=== PATIENT | female | born 1960 | race Caucasian/White ===

== ENCOUNTER 2021-03-19 09:18 | Outpatient (CLI) | payer OTHER ==
[~2021-03-19 09:18] MED LIST: Magnevist 469MG/ML 20 ML VIAL ONE
== END 2021-03-19 09:19 | disposition home or self-care (01) ==
LOC: TBSIIMAG 09:18
PROVIDERS: ATTEND Neurological Surgery
DX: M89.8X8 Other specified disorders of bone, other site (principal); D18.09 Hemangioma of other sites; G93.9 Disorder of brain, unspecified; M47.814 Spondylosis without myelopathy or radiculopathy, thoracic region
CPT/HCPCS: 72157; 82565; A9579

== ENCOUNTER 2022-05-12 13:23 | Outpatient (CLI) | payer MEDICARE ==
[2022-05-12] MEDS ORDERED: Magnevist 469MG/ML 20 ML VIAL ONE (14:38)
== END 2022-05-12 13:24 | disposition home or self-care (01) ==
LOC: TBSIIMAG 13:23
PROVIDERS: ATTEND Neurological Surgery
DX: M89.9 Disorder of bone, unspecified (principal); M43.9 Deforming dorsopathy, unspecified; E04.2 Nontoxic multinodular goiter
CPT/HCPCS: 72157; 82565; A9579

== ENCOUNTER 2022-06-12 15:35 | Outpatient (CLI) | payer MEDICARE, MEDICAID ==
[2022-06-12 17:14] LABS: Hemoglobin 14.4 g/dL (12.0-15.5); Mean Corpuscular HGB CONC 34.4 g/dL (32.0-36.0); Mean Corpuscular Volume 81.5 fl (81.6-98.3); Mean Platelet Volume 11.7 fl (7.4-10.4); Platelet Count 281 10x3/uL (150-450); RBC Distribution Width 13.1 % (11.5-14.5); Red Blood Cell (RBC) Count 5.14 10x6/uL (3.90-5.03); White Blood Cell (WBC) Count 9.5 10x3/uL (3.5-10.5)
[2022-06-12 17:27] LABS: INR-International Normal Ratio 0.9; PTT 23.1 sec (22.0-33.0); Prothrombin Time 10.2 sec (9.5-12.1)
[2022-06-12 17:42] LABS: Anion Gap 16 mmol/L (10-20); BUN (Urea Nitrogen) 26 mg/dL (9.8-20.1); Calc. Creatinine Clearance 0 mL/min (70-130); Calcium 9.9 mg/dL (7.8-10.44); Carbon Dioxide 27 mmol/L (23-31); Chloride 101 mmol/L (98-107); Estimated GFR 79; Glucose 129 mg/dL (80-115); Potassium 4.3 mmol/L (3.5-5.1); Sodium 140 mmol/L (136-145)
== END 2022-06-12 15:36 | disposition home or self-care (01) ==
LOC: LABBT 15:35
PROVIDERS: ATTEND Neurological Surgery
DX: Z01.812 Encounter for preprocedural laboratory examination (principal); G95.89 Other specified diseases of spinal cord; D33.4 Benign neoplasm of spinal cord
CPT/HCPCS: 80048; 85027; 85610; 85730

== ENCOUNTER 2022-06-13 05:40 | Inpatient (IN) | payer MEDICARE, MEDICAID ==
[2022-06-13] MEDS ORDERED: Bupivacaine HCl 0.5%/Epinephrine 1:200,000/PF 30 ml Vial ONE (06:13)
[2022-06-13] MEDS ORDERED: Vancomycin 1 GM VIAL ONE (06:13)
[2022-06-13] MEDS ORDERED: Neomycin-Polymyxin 1 ML AMP ONE (06:13)
[2022-06-13] MEDS ORDERED: Thrombin 5000 UNITS/5 ML VIAL ONE (06:13)
[2022-06-13] MEDS ORDERED: Midazolam HCl 2 mg/2 ml Vial ONE ×2 (06:18→07:01)
[2022-06-13] MEDS ORDERED: fentaNYL PF 100 MCG/2 ML SYRINGE ONE (06:18)
[2022-06-13] MEDS ORDERED: HYDROmorphone 0.5 MG/0.5 ML SYRINGE ONE (06:19)
[2022-06-13] MEDS ORDERED: Bisacodyl 10 MG SUPP PR PRN (06:35)
[2022-06-13] MEDS ORDERED: Milk Of Magnesia 30 ML UDCUP PO PRN (06:35)
[2022-06-13] MEDS ORDERED: Prochlorperazine 10 MG/2 ML VIAL IM PRN (06:35)
[2022-06-13] MEDS ORDERED: Ondansetron PF 4 MG/2 ML Vial IVP PRN (06:35)
[2022-06-13] MEDS ORDERED: HYDROcodone/Acetaminophen 7.5/325 mg Tablet PO PRN (06:35)
[2022-06-13] MEDS ORDERED: diphenhydrAMINE 50 MG/ML VIAL IVP PRN (06:35)
[2022-06-13] MEDS ORDERED: HYDROcodone/Acetaminophen 10/325 mg Tablet PO PRN (06:35)
[2022-06-13] MEDS ORDERED: Mag-Al 1200 mg/1200 mg/30 ML UDCUP PO PRN (06:35)
[2022-06-13] MEDS ORDERED: traMADol HCl 50 MG TAB PO PRN (06:35)
[2022-06-13] MEDS ORDERED: Propofol 1,000 MG/100 ML VIAL IV ONE (06:45)
[2022-06-13] MEDS ORDERED: Sodium Chloride 0.9% 100 ML ONE (06:55)
[2022-06-13] MEDS ORDERED: CEFAZOLIN 2 GM VIAL ONE (06:55)
[2022-06-13] MEDS ORDERED: Rocuronium Bromide 10 MG/ML (10ML VIAL) ONE (07:16)
[2022-06-13] MEDS ORDERED: PROPOFOL 200 MG/20 ML VIAL ONE (07:16)
[2022-06-13] MEDS ORDERED: Ondansetron PF 4 MG/2 ML Vial ONE (07:16)
[2022-06-13] MEDS ORDERED: Phenylephrine 10 MG/ML VIAL ONE (07:16)
[2022-06-13] MEDS ORDERED: Dexamethasone 20 MG/5 ML VIAL ONE (07:16)
[2022-06-13] MEDS ORDERED: ePHEDrine 50 MG/ML VIAL ONE (07:16)
[2022-06-13 07:35] LABS: SARS-CoV-2 NAA Rapid Test Not Detected (NotDetected)
[2022-06-13] MEDS ORDERED: HYDROmorphone 2 MG/ML VIAL ONE (08:42)
[2022-06-13] MEDS ORDERED: Promethazine HCl 25 MG/ML VIAL IVPB PRN (12:10)
[2022-06-13] MEDS ORDERED: Ondansetron HCl/PF 4 MG/2 ML Vial IVP PRN (12:10)
[2022-06-13] MEDS ORDERED: Promethazine HCl 25 MG/ML VIAL IM PRN (12:10)
[2022-06-13] MEDS: Sodium Chloride 0.9% 1,000 ML IV SCH ×2 (13:23→19:49)
[2022-06-13] MEDS ORDERED: FENTANYL 50 MCG/ML 1 ML VIAL ONE ×4 (14:21→16:34)
[2022-06-13] MEDS ORDERED: CEFAZOLIN 2 GM in Sodium Chloride 0.9% 100 ML IVPB SCH (15:00)
[2022-06-13] MEDS: CEFAZOLIN 2 GM in Sodium Chloride 0.9% 100 ML IVPB SCH (19:43)
[2022-06-13] MEDS: Morphine 4 MG/ML VIAL SLOW IVP PRN (19:46)
[2022-06-13] MEDS: tiZANidine HCl 4 MG TAB PO PRN (19:47)
[2022-06-13 20:06] VITALS: BMI 25.2
[2022-06-14] MEDS: Morphine 4 MG/ML VIAL SLOW IVP PRN ×2 (01:59→08:23)
[2022-06-14] MEDS: CEFAZOLIN 2 GM in Sodium Chloride 0.9% 100 ML IVPB SCH (03:43)
[2022-06-14 04:25] LABS: #Monocytes 0.7 thou/uL (0.11-0.59); #Neutrophils 5.6 thou/uL (1.40-6.50); %Basophils 0.1 % (0.0-1.0); %Eosinophils 0.2 % (0.0-10.0); %Lymphocytes 13.7 % (21.0-51.0); Hemoglobin 10.9 g/dL (12.0-16.0); Mean Corpuscular HGB CONC 33.9 g/dL (32.0-36.0); Mean Corpuscular Hemoglobin 28.8 pg (27.0-31.0); Mean Corpuscular Volume 84.8 fl (78.0-98.0); Mean Platelet Volume 8.9 fL (7.4-10.4); Platelet Count 150 10x3/uL (130-400); RBC Distribution Width 12.9 % (11.5-14.5); White Blood Cell (WBC) Count 7.2 10x3/uL (4.8-10.8)
[2022-06-14 04:39] LABS: Anion Gap 11 mmol/L (10-20); BUN (Urea Nitrogen) 17 mg/dL (9.8-20.1); Calc. Creatinine Clearance 78 mL/min (70-130); Calcium 8.3 mg/dL (7.8-10.44); Carbon Dioxide 25 mmol/L (23-31); Chloride 104 mmol/L (98-107); Estimated GFR 86; Glucose 251 mg/dL (80-115); Potassium 4.4 mmol/L (3.5-5.1); Sodium 136 mmol/L (136-145)
[2022-06-14] MEDS: tiZANidine HCl 4 MG TAB PO PRN ×2 (08:35→17:19)
[2022-06-14] MEDS: Sodium Chloride 0.9% 1,000 ML IV SCH (08:38)
[2022-06-14] MEDS ORDERED: FLU VACC QS2022-23(6MOS UP)/PF 60 MCG/0.5 ML SYRINGE IM ONE (09:00)
[2022-06-14] MEDS ORDERED: Naloxone HCl 0.4 mg/ml Vial IV PRN (09:45)
[2022-06-14] MEDS ORDERED: Promethazine HCl 25 MG/ML VIAL IM PRN (09:45)
[2022-06-14] MEDS ORDERED: diphenhydrAMINE 50 MG/ML VIAL IM/IV PRN (09:45)
[2022-06-14] MEDS ORDERED: Zolpidem Tartrate 5 MG TAB PO PRN (09:45)
[2022-06-14] MEDS ORDERED: diphenhydrAMINE 25 MG CAP PO PRN (09:45)
[2022-06-14] MEDS: HYDROmorphone/PF 10 MG in Sodium Chloride 0.9% 99 ML IVPB PRN (10:06)
[2022-06-14] MEDS ORDERED: Dextrose 50% Abboject 50 ML SYRINGE SLOW IVP PRN (17:51)
[2022-06-14] MEDS ORDERED: HumaLOG 300 UNITS/3 ML VIAL SC PRN (17:51)
[2022-06-14] MEDS ORDERED: Dextrose 5% in Water 1,000 ML IV PRN (17:51)
[2022-06-14] MEDS: Acetaminophen 325 MG TAB PO PRN (19:04)
[2022-06-14 19:11] LABS: Hemoglobin 10.4 g/dL (12.0-16.0); Mean Corpuscular HGB CONC 35.6 g/dL (32.0-36.0); Mean Corpuscular Hemoglobin 30.5 pg (27.0-31.0); Mean Corpuscular Volume 85.6 fl (78.0-98.0); RBC Distribution Width 12.8 % (11.5-14.5); Red Blood Cell (RBC) Count 3.42 mill/uL (4.20-5.40)
[2022-06-14 19:12] LABS: #Lymphocytes 1.1 thou/uL (1.20-3.40); #Monocytes 0.5 thou/uL (0.11-0.59); #Neutrophils 5.5 thou/uL (1.40-6.50); %Basophils 0.2 % (0.0-1.0); %Eosinophils 0.2 % (0.0-10.0); %Lymphocytes 14.9 % (21.0-51.0); %Monocytes 6.8 % (0.0-10.0); %Neutrophils 77.9 % (42.0-75.0)
[2022-06-14 19:15] LABS: Bilirubin Negative (Negative); Blood, Urine Negative (Negative); Clarity Clear (Clear); Glucose, Urine (Dipstick) Greater than 1000 mg/dL (Negative); Ketone, Urine 10 mg/dL (Negative); Leukocyte Negative Leu/uL (Negative); Nitrite Negative (Negative); Protein, Urine (Dipstick) Negative (Neg-Trace); Specific Gravity, Urine 1.013 (1.002-1.036); Urobilinogen Normal mg/dL (Less than 2)
[2022-06-14] MEDS ORDERED: VANCOMYCIN 1.25 GM/250 ML BAG 1.25 GM in Premix Bag 1 BAG IVPB SCH (19:15)
[2022-06-14 19:18] LABS: ALT (SGPT) 14 U/L (8-55); AST (SGOT) 20 U/L (5-34); Albumin 3.2 g/dL (3.4-4.8); Alkaline Phosphatase 119 U/L (40-110); Anion Gap 10 mmol/L (10-20); BUN (Urea Nitrogen) 11 mg/dL (9.8-20.1); Bilirubin, Total 0.9 mg/dL (0.2-1.2); Calc. Creatinine Clearance 83 mL/min (70-130); Carbon Dioxide 23 mmol/L (23-31); Chloride 101 mmol/L (98-107); Estimated GFR 94; Globulin 2.2 g/dL (2.4-3.5); Glucose 276 mg/dL (80-115); Potassium 3.4 mmol/L (3.5-5.1); Protein, Total 5.4 g/dL (5.8-8.1); Sodium 131 mmol/L (136-145)
[2022-06-14 19:26] LABS: Mean Platelet Volume 8.7 fL (7.4-10.4); Platelet Count 118 10x3/uL (130-400); Platelet Morphology Comment Appears Decreased; RBC Morphology Normal
[2022-06-14] MEDS: Cefepime 1 GM in Sodium Chloride 0.9% 100 ML IVPB SCH (19:45)
[2022-06-14] MEDS ORDERED: Potassium Bicarbonate/Cit Ac 20 MEQ TAB PO SCH (20:00)
[2022-06-14] MEDS: Losartan 25 MG TAB PO SCH (20:33)
[2022-06-14] MEDS: Atorvastatin Calcium 20 MG TAB PO SCH (20:33)
[2022-06-14] MEDS: Insulin NPH Human Isophane 100 UNIT/ML (10 ML VIAL) SC SCH (20:35)
[2022-06-14] MEDS: Cholecalciferol 1,000 UNITS (25 MCG) TAB PO SCH (20:39)
[2022-06-14 20:54] LABS: Magnesium 1.4 mg/dL (1.6-2.6)
[2022-06-14] MEDS ORDERED: Hydroxychloroquine Sulfate 200 MG TAB PO SCH (21:00)
[2022-06-14] MEDS: Stress 600 With Zinc 1 TAB PO SCH (21:01)
[2022-06-14] MEDS: Methimazole 10 MG TAB PO SCH (21:01)
[2022-06-15] MEDS: Sodium Chloride 0.9% 1,000 ML IV SCH ×2 (00:31→12:08)
[2022-06-15] MEDS: Acetaminophen 325 MG TAB PO PRN (00:57)
[2022-06-15 04:12] LABS: #Lymphocytes 1.4 thou/uL (1.20-3.40); #Monocytes 1.1 thou/uL (0.11-0.59); #Neutrophils 8.6 thou/uL (1.40-6.50); %Basophils 0.2 % (0.0-1.0); %Eosinophils 0.1 % (0.0-10.0); %Lymphocytes 12.3 % (21.0-51.0); %Monocytes 9.5 % (0.0-10.0); %Neutrophils 77.9 % (42.0-75.0); Hemoglobin 10.3 g/dL (12.0-16.0); Mean Corpuscular HGB CONC 31.9 g/dL (32.0-36.0); Mean Corpuscular Hemoglobin 27.4 pg (27.0-31.0); Mean Corpuscular Volume 85.8 fl (78.0-98.0); Mean Platelet Volume 8.6 fL (7.4-10.4); Platelet Count 126 10x3/uL (130-400); RBC Distribution Width 12.9 % (11.5-14.5); Red Blood Cell (RBC) Count 3.75 mill/uL (4.20-5.40)
[2022-06-15 04:55] LABS: ALT (SGPT) 12 U/L (8-55); AST (SGOT) 25 U/L (5-34); Alkaline Phosphatase 113 U/L (40-110); Anion Gap 11 mmol/L (10-20); BUN (Urea Nitrogen) 10 mg/dL (9.8-20.1); Calc. Creatinine Clearance 79 mL/min (70-130); Calcium 8.2 mg/dL (7.8-10.44); Carbon Dioxide 24 mmol/L (23-31); Chloride 104 mmol/L (98-107); Estimated GFR 88; Globulin 2.5 g/dL (2.4-3.5); Glucose 184 mg/dL (80-115); Magnesium 1.5 mg/dL (1.6-2.6); Potassium 3.9 mmol/L (3.5-5.1); Protein, Total 5.5 g/dL (5.8-8.1); Sodium 135 mmol/L (136-145)
[2022-06-15] MEDS: HumaLOG 300 UNITS/3 ML VIAL SC PRN ×4 (05:45→22:19)
[2022-06-15] MEDS ORDERED: Magnesium 2 GM/50 ML(in water) 2 GM in Premix Bag 1 BAG IVPB SCH (06:00)
[2022-06-15] MEDS: Cefepime 1 GM in Sodium Chloride 0.9% 100 ML IVPB SCH ×2 (07:36→20:55)
[2022-06-15] MEDS: Insulin NPH Human Isophane 100 UNIT/ML (10 ML VIAL) SC SCH ×2 (07:36→22:15)
[2022-06-15] MEDS: Hydrochlorothiazide 25 MG TAB PO SCH (07:36)
[2022-06-15] MEDS: Vancomycin HCl 750 MG in Sodium Chloride 0.9% 250 ML 250 ML IVPB SCH ×2 (08:15→20:57)
[2022-06-15] MEDS ORDERED: Hydrochlorothiazide 25 MG TAB PO SCH (09:00)
[2022-06-15] MEDS: Nicotine 14 MG PATCH TD SCH (14:17)
[2022-06-15] MEDS: HYDROmorphone/PF 10 MG in Sodium Chloride 0.9% 99 ML IVPB PRN (15:26)
[2022-06-15] MEDS: Losartan 25 MG TAB PO SCH (21:19)
[2022-06-15] MEDS: Atorvastatin Calcium 20 MG TAB PO SCH (21:19)
[2022-06-15] MEDS: Methimazole 10 MG TAB PO SCH (21:20)
[2022-06-15] MEDS: Stress 600 With Zinc 1 TAB PO SCH (21:21)
[2022-06-15] MEDS: Cholecalciferol 1,000 UNITS (25 MCG) TAB PO SCH (21:39)
[2022-06-16] MEDS: Sodium Chloride 0.9% 1,000 ML IV SCH ×2 (01:05→14:37)
[2022-06-16] MEDS: Acetaminophen 325 MG TAB PO PRN (01:11)
[2022-06-16] MEDS ORDERED: Metoprolol Tartrate 5 MG/5 ML VIAL ONE (02:58)
[2022-06-16 03:05] LABS: #Lymphocytes 1.4 thou/uL (1.20-3.40); #Monocytes 0.9 thou/uL (0.11-0.59); #Neutrophils 6.9 thou/uL (1.40-6.50); %Basophils 0.2 % (0.0-1.0); %Eosinophils 0.2 % (0.0-10.0); %Lymphocytes 14.6 % (21.0-51.0); %Monocytes 10.1 % (0.0-10.0); %Neutrophils 74.9 % (42.0-75.0); Hemoglobin 11.3 g/dL (12.0-16.0); Mean Corpuscular HGB CONC 34.1 g/dL (32.0-36.0); Mean Corpuscular Hemoglobin 29.1 pg (27.0-31.0); Mean Corpuscular Volume 85.5 fl (78.0-98.0); Mean Platelet Volume 8.8 fL (7.4-10.4); Platelet Count 118 10x3/uL (130-400); RBC Distribution Width 12.6 % (11.5-14.5); Red Blood Cell (RBC) Count 3.87 mill/uL (4.20-5.40); White Blood Cell (WBC) Count 9.3 10x3/uL (4.8-10.8)
[2022-06-16 03:20] LABS: Lactic Acid 0.8 mmol/L (0.5-2.2)
[2022-06-16 03:26] LABS: ALT (SGPT) 11 U/L (8-55); AST (SGOT) 16 U/L (5-34); Albumin 3.1 g/dL (3.4-4.8); Alkaline Phosphatase 117 U/L (40-110); Anion Gap 11 mmol/L (10-20); BUN (Urea Nitrogen) 7 mg/dL (9.8-20.1); Bilirubin, Total 0.9 mg/dL (0.2-1.2); Calc. Creatinine Clearance 87 mL/min (70-130); Calcium 8.6 mg/dL (7.8-10.44); Carbon Dioxide 25 mmol/L (23-31); Chloride 100 mmol/L (98-107); Estimated GFR 98; Globulin 2.8 g/dL (2.4-3.5); Glucose 215 mg/dL (80-115); Magnesium 1.6 mg/dL (1.6-2.6); Potassium 3.2 mmol/L (3.5-5.1); Protein, Total 5.9 g/dL (5.8-8.1); Sodium 133 mmol/L (136-145)
[2022-06-16 03:28] LABS: Troponin I Less than 0.010 ng/mL (< 0.028)
[2022-06-16] MEDS: HumaLOG 300 UNITS/3 ML VIAL SC PRN ×4 (05:34→22:30)
[2022-06-16] MEDS ORDERED: Magnesium 2 GM/50 ML(in water) 2 GM in Premix Bag 1 BAG IVPB SCH ×2 (06:00→06:30)
[2022-06-16] MEDS ORDERED: Electrolyte Replacement Protocol FS PRN (06:30)
[2022-06-16 07:13] LABS: Vancomycin, Trough 10.1 ug/mL
[2022-06-16] MEDS: Cefepime 1 GM in Sodium Chloride 0.9% 100 ML IVPB SCH ×2 (07:42→20:19)
[2022-06-16] MEDS: Ondansetron PF 4 MG/2 ML Vial IVP PRN (07:43)
[2022-06-16] MEDS: Insulin NPH Human Isophane 100 UNIT/ML (10 ML VIAL) SC SCH ×2 (07:49→20:37)
[2022-06-16] MEDS: Hydrochlorothiazide 25 MG TAB PO SCH (07:49)
[2022-06-16] MEDS: Potassium Chloride 20 MEQ in Premix Bag 1 BAG IVPB SCH ×2 (07:55→10:00)
[2022-06-16] MEDS ORDERED: Potassium Chloride 20 MEQ in Premix Bag 1 BAG IVPB SCH (08:00)
[2022-06-16] MEDS ORDERED: Vancomycin 1.5 GRAM/300 ML BAG 1.5 GM in Premix Bag 1 BAG IVPB SCH (08:30)
[2022-06-16] MEDS: Vancomycin HCl 750 MG in Sodium Chloride 0.9% 250 ML 250 ML IVPB SCH (08:51)
[2022-06-16] MEDS ORDERED: traMADol HCl 50 MG TAB PO PRN (12:09)
[2022-06-16] MEDS ORDERED: FENTANYL 50 MCG/ML 1 ML VIAL SLOW IVP PRN (12:09)
[2022-06-16] MEDS ORDERED: oxyCODONE 5 MG TAB PO PRN (12:41)
[2022-06-16] MEDS: Acetaminophen 500 MG TAB PO SCH ×3 (12:54→23:31)
[2022-06-16] MEDS: oxyCODONE 5 MG TAB PO PRN ×2 (12:55→20:05)
[2022-06-16] MEDS: Nicotine 14 MG PATCH TD SCH (14:41)
[2022-06-16] MEDS: Losartan 25 MG TAB PO SCH (20:09)
[2022-06-16] MEDS: Cholecalciferol 1,000 UNITS (25 MCG) TAB PO SCH ×3 (20:10→20:12)
[2022-06-16] MEDS: Methimazole 10 MG TAB PO SCH (20:13)
[2022-06-16] MEDS: Vancomycin 1.5 GRAM/300 ML BAG 1.5 GM in Premix Bag 1 BAG IVPB SCH (20:24)
[2022-06-16] MEDS: Stress 600 With Zinc 1 TAB PO SCH (21:00)
[2022-06-16] MEDS: Atorvastatin Calcium 20 MG TAB PO SCH (21:04)
[2022-06-17 04:17] LABS: #Lymphocytes 0.9 thou/uL (1.20-3.40); #Monocytes 0.5 thou/uL (0.11-0.59); #Neutrophils 4.4 thou/uL (1.40-6.50); %Basophils 0.2 % (0.0-1.0); %Eosinophils 0.2 % (0.0-10.0); %Lymphocytes 15.5 % (21.0-51.0); %Monocytes 8.3 % (0.0-10.0); %Neutrophils 75.8 % (42.0-75.0); Hemoglobin 9.9 g/dL (12.0-16.0); Mean Corpuscular HGB CONC 34.2 g/dL (32.0-36.0); Mean Corpuscular Hemoglobin 29.3 pg (27.0-31.0); Mean Corpuscular Volume 85.7 fl (78.0-98.0); Platelet Count 148 10x3/uL (130-400); RBC Distribution Width 12.6 % (11.5-14.5); Red Blood Cell (RBC) Count 3.38 mill/uL (4.20-5.40); White Blood Cell (WBC) Count 5.8 10x3/uL (4.8-10.8)
[2022-06-17 04:47] LABS: Anion Gap 11 mmol/L (10-20); BUN (Urea Nitrogen) 8 mg/dL (9.8-20.1); Calc. Creatinine Clearance 85 mL/min (70-130); Calcium 8.8 mg/dL (7.8-10.44); Carbon Dioxide 28 mmol/L (23-31); Chloride 103 mmol/L (98-107); Estimated GFR 91; Glucose 228 mg/dL (80-115); Magnesium 1.6 mg/dL (1.6-2.6); Potassium 3.6 mmol/L (3.5-5.1); Sodium 138 mmol/L (136-145)
[2022-06-17] MEDS: HumaLOG 300 UNITS/3 ML VIAL SC PRN ×4 (05:48→20:48)
[2022-06-17] MEDS: oxyCODONE 5 MG TAB PO PRN (05:51)
[2022-06-17] MEDS: Acetaminophen 500 MG TAB PO SCH ×3 (05:51→17:10)
[2022-06-17 06:24] LABS: #Lymphocytes 0.9 thou/uL (1.20-3.40); #Monocytes 0.5 thou/uL (0.11-0.59); #Neutrophils 4.1 thou/uL (1.40-6.50); %Basophils 0.3 % (0.0-1.0); %Eosinophils 0.2 % (0.0-10.0); %Lymphocytes 16.2 % (21.0-51.0); %Monocytes 8.2 % (0.0-10.0); %Neutrophils 75.2 % (42.0-75.0); Hemoglobin 9.6 g/dL (12.0-16.0); Mean Corpuscular HGB CONC 33.4 g/dL (32.0-36.0); Mean Corpuscular Hemoglobin 28.8 pg (27.0-31.0); Mean Corpuscular Volume 86.2 fl (78.0-98.0); Mean Platelet Volume 8.9 fL (7.4-10.4); Platelet Count 146 10x3/uL (130-400); RBC Distribution Width 12.5 % (11.5-14.5); Red Blood Cell (RBC) Count 3.32 mill/uL (4.20-5.40); White Blood Cell (WBC) Count 5.5 10x3/uL (4.8-10.8)
[2022-06-17] MEDS: Cefepime 1 GM in Sodium Chloride 0.9% 100 ML IVPB SCH ×2 (08:50→20:34)
[2022-06-17] MEDS: Hydrochlorothiazide 25 MG TAB PO SCH (08:56)
[2022-06-17] MEDS: Insulin NPH Human Isophane 100 UNIT/ML (10 ML VIAL) SC SCH ×2 (09:00→20:36)
[2022-06-17] MEDS ORDERED: Magnesium Sulfate In Water 4 GM in Premix Bag 1 BAG IVPB SCH (09:00)
[2022-06-17] MEDS: Vancomycin 1.5 GRAM/300 ML BAG 1.5 GM in Premix Bag 1 BAG IVPB SCH ×2 (09:26→20:35)
[2022-06-17] MEDS: traMADol HCl 50 MG TAB PO PRN ×2 (09:53→18:33)
[2022-06-17] MEDS: HumaLOG 300 UNITS/3 ML VIAL SC SCH ×2 (11:49→17:11)
[2022-06-17] MEDS: Nicotine 14 MG PATCH TD SCH (14:31)
[2022-06-17 19:52] LABS: Vancomycin, Trough 18.6 ug/mL
[2022-06-17] MEDS: Losartan 25 MG TAB PO SCH (20:36)
[2022-06-17] MEDS: Atorvastatin Calcium 20 MG TAB PO SCH (20:36)
[2022-06-17] MEDS: Cholecalciferol 1,000 UNITS (25 MCG) TAB PO SCH (20:39)
[2022-06-17] MEDS: tiZANidine HCl 4 MG TAB PO PRN (20:40)
[2022-06-17] MEDS: Stress 600 With Zinc 1 TAB PO SCH (20:40)
[2022-06-17] MEDS: Methimazole 10 MG TAB PO SCH (22:45)
[2022-06-17] MEDS: Ondansetron PF 4 MG/2 ML Vial IVP PRN (22:46)
[2022-06-18] MEDS: Acetaminophen 500 MG TAB PO SCH ×3 (01:24→15:07)
[2022-06-18] MEDS: HumaLOG 300 UNITS/3 ML VIAL SC PRN (05:46)
[2022-06-18] MEDS: Ondansetron PF 4 MG/2 ML Vial IVP PRN (09:01)
[2022-06-18] MEDS: Cefepime 1 GM in Sodium Chloride 0.9% 100 ML IVPB SCH (09:02)
[2022-06-18] MEDS: HumaLOG 300 UNITS/3 ML VIAL SC SCH ×2 (09:02→15:07)
[2022-06-18] MEDS: Hydrochlorothiazide 25 MG TAB PO SCH (09:03)
[2022-06-18] MEDS: Insulin NPH Human Isophane 100 UNIT/ML (10 ML VIAL) SC SCH (09:25)
[2022-06-18] MEDS: oxyCODONE 5 MG TAB PO PRN (09:25)
[2022-06-18] MEDS: traMADol HCl 50 MG TAB PO PRN (11:08)
[2022-06-18] MEDS: Vancomycin 1.5 GRAM/300 ML BAG 1.5 GM in Premix Bag 1 BAG IVPB SCH (11:19)
[2022-06-18 12:31] VITALS: BP 148/78; TEMP 97.6
== END 2022-06-18 14:00 | disposition home or self-care (01) | DRG 28 ==
LOC: SDC 05:40 → CCU 06:57 → SURG B 06-17 03:57
PROVIDERS: ADMIT Neurological Surgery; ATTEND Internal Medicine
PROC: 00BX0ZZ Excision of Thoracic Spinal Cord, Open Approach (ICD-10-PCS; principal; 2022-06-13)
PROC: 00NX0ZZ Release Thoracic Spinal Cord, Open Approach (ICD-10-PCS; 2022-06-13)
PROC: 4A11X4G Monitoring of Peripheral Nervous Electrical Activity, Intraoperative, External Approach (ICD-10-PCS; 2022-06-13)
DX: D32.1 Benign neoplasm of spinal meninges (principal); G93.41 Metabolic encephalopathy; I47.1 Supraventricular tachycardia; J98.11 Atelectasis; Z20.822 Contact with and (suspected) exposure to COVID-19; I10 Essential (primary) hypertension; E05.90 Thyrotoxicosis, unspecified without thyrotoxic crisis or storm; M06.9 Rheumatoid arthritis, unspecified; R50.9 Fever, unspecified; E87.6 Hypokalemia; E83.42 Hypomagnesemia; E11.51 Type 2 diabetes mellitus with diabetic peripheral angiopathy without gangrene; E11.65 Type 2 diabetes mellitus with hyperglycemia; M19.90 Unspecified osteoarthritis, unspecified site; Z90.49 Acquired absence of other specified parts of digestive tract; Z98.51 Tubal ligation status; Z90.710 Acquired absence of both cervix and uterus; Z82.49 Family history of ischemic heart disease and other diseases of the circulatory system; Z83.3 Family history of diabetes mellitus; Z79.899 Other long term (current) drug therapy; Z79.82 Long term (current) use of aspirin; Z79.4 Long term (current) use of insulin; Z88.6 Allergy status to analgesic agent; Z88.8 Allergy status to other drugs, medicaments and biological substances; Z88.2 Allergy status to sulfonamides; Z91.040 Latex allergy status
CPT/HCPCS: 36415; 36416; 71045; 80048; 80053; 80202; 81003; 83605; 83735; 84443; 84484; 85025; 85027; 85610; 85730; 86850; 86900; 86901; 87040; 88307; 88311; 88341; 88342; 93005; 93010; 93306; 93970; C1713; C1776; J0692; J1100; J1170; J1200; J1815; J2250; J2270; J2370; J2405; J2704; J3010; J3370; J3475; J3480; J3490; J7050; U0002

== ENCOUNTER 2022-12-29 07:35 | Outpatient (CLI) | payer MEDICAID, MEDICARE, OTHER | END 2022-12-29 07:36 | disposition home or self-care (01) | LOC: SCSMRI 07:35 | PROVIDERS: ATTEND Neurological Surgery | DX: M89.9 Disorder of bone, unspecified (principal); M47.814 Spondylosis without myelopathy or radiculopathy, thoracic region; Z98.890 Other specified postprocedural states | CPT/HCPCS: 72157; 82565 ==